=== PATIENT | male | born 2005 | race African-American/Black ===

== ENCOUNTER 2024-07-19 18:14 | Inpatient (IN) | payer SELFPAY ==
[2024-07-19] VITALS (10 sets, daily range): BP systolic 119–136; BP diastolic 85–99; PULSE 64–77; RESP 12–22; TEMP 37.2–37.4; O2SAT 95–100; BMI 23.4
--- NOTE | ~2024-07-19 | XR_ITS ---
XR chest 1V portable Ordering provider: Miguel Vincent MD History: 19 years Male with . cough, flu . Comparison: None. FINDINGS: MEDIASTINUM: The cardiac silhouette is not enlarged. LUNGS: No infiltrates, effusions or pneumothorax. OTHER: No free air under the diaphragm. IMPRESSION: No acute cardiopulmonary pathology. Reviewed, dictated and finalized at location A.
--- NOTE | ~2024-07-19 | NM_ITS ---
EXAMINATION: NM parathyroid w imaging DATE: 07/21/2024 13:24 INDICATION: Hypocalcemia TECHNIQUE: 26.7 mCi Tc99m sestamibi (Cardiolite) was administered by intravenous route. Anterior imag es of the neck were obtained at 20 minutes and 2 hours. COMPARISON: None. FINDINGS/IMPRESSION: There is no focus of persistent activity in the area of the thyroid or mediastinum to suggest parathy roid adenoma. Reviewed, dictated and finalized at location A.
--- NOTE | 2024-07-19 18:17 | ED.GENADULT ---
HPI - General Adult General Chief complaint: Unspecified Stated complaint: body cramps Time Seen by Provider: 07/19/24 18:17 Source: patient Mode of arrival: ambulatory Limitations: no limitations History of Present Illness HPI narrative: 19-year-old male with no significant past medical history presents to the ED with a 4 day history of -- fever, nonproductive cough, body ache, night sweats -- had an episode of generalized stiffness with numbness and tingling all over. -- Shaking of his hands. No loss of consciousness. no incontinence during this episode. Subsequently he did not have any focal neuro deficits. Onset (ago): day(s) ( Four days) Treatments prior to arrival: none Related Data Home Medications ?Medication ?Instructions ?Recorded ?Confirmed ?Last Taken ?Type No Home Medications 07/19/24 Unknown History Allergies Allergy/AdvReac Type Severity Reaction Status Date / Time Fish Containing Products Allergy Severe Anaphylaxis Verified 07/19/24 18:35 Review of Systems Review of Systems: All systems reviewed & are unremarkable except as noted in HPI and below Constitutional: Constitutional: Reports as per HPI, Reports no additional constitutional complaints, Reports chills and Reports fever(s) Eyes: Eyes: Reports as per HPI and Reports no additional eye complaints ENT: Reports system reviewed and no additional complaints, except as documented and Reports as per HPI Cardiovascular: Cardiovascular: Reports as per HPI and Reports no additional cardiovascular complaints Respiratory: Respiratory: Reports as per HPI and Reports no additional respiratory complaints Gastrointestinal: Gastrointestinal: Reports as per HPI, Reports no additional gastrointestinal complaints, Reports abdominal pain and Reports nausea Genitourinary: Genitourinary: Reports no additional male genitourinary complaints and Reports as per HPI Musculoskeletal: Musculoskeletal: Reports no additional musculoskeletal complaints, Reports as per HPI and Reports myalgias Comments: generalized cramping Integumentary/Breasts: Skin/Breast: Reports system reviewed and no additional complaints, except as docu and Reports as per HPI Neurologic: Reports system reviewed and no additional complaints, except as documented and Reports as per HPI Comments: shaking of both hands without any loss of consciousness. Psychiatric: Psychiatric: Reports no additional psychiatric complaints and Reports as per HPI Endocrine: Endocrine: Reports no additional endocrine complaints and Reports as per HPI Hematologic/Lymphatic: Hematologic/Lymphatic: Reports no additional hematologic/lymphatic complaints and Reports as per HPI Allergic/Immunologic: Allergic/Immunologic: Reports no additional allergic/immunologic complaints and Reports as per HPI Exam Const: General: no acute distress Nutritional Appearance: well nourished Orientation/consciousness: patient oriented x3 Limitations: no limitations HENMT: Head: normal to inspection Ears: external ears normal Face/Nose/Sinus: Normal external nose present Face and sinus: normal facial exam Mouth: Yes Normal oral and palatal mucosa present Throat: posterior oropharynx normal Eyes: Conjunctivae: conjunctivae normal Pupils: Equal, round and reactive pupils present EOM: EOMs intact bilaterally Direct Ophthalmoscopy: no photophobia Neck: Neck: normal visual inspection, no lymphadenopathy and no meningeal signs Chest: Chest palpation & inspection: normal inspection of the chest Resp: Effort & Inspection: normal respiratory effort Auscultation: clear to auscultation bilaterally Cardio: Rate: regular rate Rhythm: regular rhythm GI: GI Palp: Yes Soft to palpation Other: No tenderness/rigidity /rebound : General: Yes no CVA tenderness Back/Spine/Pelvis: Back: no CVA tenderness Skin: General skin exam: normal color Rashes: no rashes Wounds: no wounds Neuro: General: patient oriented x3, moves all extremities, no meningeal signs, no focal motor deficits and CN's II-XI intact bilaterally Cranial nerves: Yes Nystagmus not present Gait exam (Neuro): Normal gait present Extrem: General: normal to inspection and no clubbing, cyanosis or edema Psych: Mental Status: mental status grossly normal Affect: normal affect Attitude: cooperative Course Course Emergency Course: upper respiratory tract infection-- influenza a generalized shaking of hands-- hypocalcemia-- patient received 3 g of calcium gluconate, calcitriol 1 mg tablet. No prior episodes of shaking/ cramps hyponatremia /hypokalemia-- patient has been drinking a lot of IV fluids after he became ill. will admit the patient for observation in view of the questionable shaking, arrhythmias, hypotension. will give the patient in telemetry. awaiting the results of a ionized calcium, vitamin-D, parathyroid levels Vital Signs Vital signs: Vital Signs Temperature 37.2 C 07/19/24 20:15 Pulse Rate 74 07/19/24 20:15 Respiratory Rate 18 07/19/24 20:15 Blood Pressure 122/86 07/19/24 20:15 Pulse Oximetry 100 07/19/24 20:15 Oxygen Delivery Room Air 07/19/24 20:15 Temperature 37.3 C 07/19/24 22:41 Pulse Rate 77 07/19/24 22:15 Respiratory Rate 22 H 07/19/24 22:15 Blood Pressure 129/92 H 07/19/24 21:30 Pulse Oximetry 96 07/19/24 22:15 Oxygen Delivery Room Air 07/19/24 20:15 Medical Decision Making MDM Narrative Medical decision making narrative: electrolyte imbalance-- hypokalemia, hyponatremia, hypocalcemia influenza a Differential Diagnosis Differential Diagnosis: vitamin-D deficiency, hypoparathyroid is Medical Records Medical records reviewed: Yes I reviewed the external patient's medical records. Vital Signs Vital Signs: Vital Signs Temperature 37.2 C 07/19/24 20:15 Pulse Rate 74 07/19/24 20:15 Respiratory Rate 18 07/19/24 20:15 Blood Pressure 122/86 07/19/24 20:15 Pulse Oximetry 100 07/19/24 20:15 Oxygen Delivery Room Air 07/19/24 20:15 Temperature 37.3 C 07/19/24 22:41 Pulse Rate 77 07/19/24 22:15 Respiratory Rate 22 H 07/19/24 22:15 Blood Pressure 129/92 H 07/19/24 21:30 Pulse Oximetry 96 07/19/24 22:15 Oxygen Delivery Room Air 07/19/24 20:15 Lab Data 07/19/24 18:40 07/19/24 18:40 Labs: Lab Results 07/19/24 07/19/24 07/19/24 Range/Units 18:40 20:07 20:17 WBC 4.9 (4.8-10.8) K/mm3 RBC 5.26 (4.70-6.10) M/mm3 Hgb 16.0 (14.0-18.0) g/dL Hct 47.4 (40.0-54.0) % MCV 90.1 (78.0-102.0) fL MCH 30.4 (27.0-31.0) pg MCHC 33.8 (32-36) g/dL RDW 12.5 (11.6-14.4) % Plt Count 191 (150-420) K/mm3 MPV 9.0 (8.7-11.0) fl Immature Gran % (Auto) 0.2 H (0.0-0.0) % Neut % (Auto) 45.7 L (50.0-70.0) % Lymph % (Auto) 42.4 H (18.0-42.0) % [place] % (Auto) 10.5 (2.0-11.0) % Eos % (Auto) 0.2 L (1.0-6.0) % Baso % (Auto) 1.0 (0.0-1.0) % Lymph # (Auto) 2.09 (1.10-4.50) K/mm3 [place] # (Auto) 0.52 (0.10-0.90) K/mm3 Eos # (Auto) 0.01 L (0.02-0.50) K/mm3 Baso # (Auto) 0.05 (0.00-0.10) K/mm3 Abs Immat Gran (auto) 0.01 H (0.00-0.00) K/mm3 Absolute Neuts (auto) 2.25 (1.70-7.20) K/mm3 Absolute Nucleated RBC 0.00 (0.00-0.00) K/mm3 Nucleated RBC % 0.0 (0-0.0) % Sodium 131 L (137-145) mmol/L Potassium 3.2 L (3.4-5.0) mmol/L Chloride 93 L (98-107) mmol/L Carbon Dioxide 26 (22-30) mmol/L Anion Gap 12 (4-12) mmol/L BUN 10 (9-20) mg/dL Creatinine 1.11 (0.7-1.3) mg/dL Estim Creat Clear Calc Not Reportable Estimated GFR > 60 (59 - ) Glucose 102 (65-110) mg/dL Calculated Osmolality 271 L (285-295) mOsm/kg Lactic Acid 1.2 (0.7-2.0) mmol/L Calcium 5.6 L* (8.4-10.2) mg/dL Ionized Calcium Dante Pending Phosphorus 5.6 H (2.5-4.5) mg/dL Magnesium 1.6 (1.6-2.3) mg/dL Total Bilirubin 0.7 (0.2-1.3) mg/dL AST 49 (17-59) U/L ALT 22 (6-50) U/L Alkaline Phosphatase 86 (38-126) U/L Total Protein 8.0 (6.3-8.2) g/dL Albumin 4.4 (3.5-5.1) g/dL Lipase 86 (23-300) U/L Vitamin D 25-Hydroxy Pending PTH Intact Pending Influenza A (RT-PCR) Negative (Negative) Influenza B (RT-PCR) Positive A (Negative) RSV (RT-PCR) Negative (Negative) SARS-CoV-2 RNA (RT-PCR) Negative (Negative) ECG Data EKG #1: ECG completion date: 07/19/24 ECG completion time: 21:02 Interpretation: normal sinus rhythm normal axis. ST elevation. QTcB noted to be 415. no heart blocks noted. Discharge Plan Discharge Clinical Impression: Hypocalcemia, Influenza A, Electrolyte imbalance Patient Disposition: Acute Care [facility] Condition: Stable Patient Language: Palestinian Prescriptions: No Action No Home Medications Follow-up/Referrals: UNKNOWN,DOCTOR [Non-Staff] - Time of Disposition: 23:01
[2024-07-19 18:45] LABS: Basophils Absolute Auto 0.05 K/mm3 (0.00-0.10); Eosinophils Absolute Auto 0.01 K/mm3 (0.02-0.50); Eosinophils Percent Auto 0.2 % (1.0-6.0); Hematocrit 47.4 % (40.0-54.0); Immature Granulocyte Absolute 0.01 K/mm3 (0.00-0.00); Immature Granulocyte Percent A 0.2 % (0.0-0.0); Lymphocytes Absolute Auto 2.09 K/mm3 (1.10-4.50); Lymphocytes Percent Auto 42.4 % (18.0-42.0); Mean Corpuscular HGB Conc 33.8 g/dL (32-36); Mean Corpuscular Hemoglobin 30.4 pg (27.0-31.0); Mean Corpuscular Volume 90.1 fL (78.0-102.0); Monocytes Absolute Auto 0.52 K/mm3 (0.10-0.90); Monocytes Percent Auto 10.5 % (2.0-11.0); Neutrophils Absolute Auto 2.25 K/mm3 (1.70-7.20); Neutrophils Percent Auto 45.7 % (50.0-70.0); Platelet Count Result 191 K/mm3 (150-420); Red Blood Count 5.26 M/mm3 (4.70-6.10); Red Cell Distribution Width 12.5 % (11.6-14.4); White Blood Count 4.9 K/mm3 (4.8-10.8)
--- NOTE | 2024-07-19 19:19 | PC.NURSE ---
patient report received from BROWN Dietrich for continuation of care on second shift supervisor. ERP Dr. Vincent at patient bedside for patient update and plan of care at this time.
[2024-07-19 19:23] LABS: Influenza A QL RT-PCR Negative (Negative); Influenza B QL RT-PCR Positive (Negative); RSV RNA, RT-PCR Negative (Negative); SARS-CoV-2 RNA PCR Negative (Negative)
[2024-07-19 19:37] LABS: Lactic Acid Reflex 1.2 mmol/L (0.7-2.0)
[2024-07-19 19:48] LABS: Alanine Aminotransferase 22 U/L (6-50); Albumin Level 4.4 g/dL (3.5-5.1); Alkaline Phosphatase 86 U/L (38-126); Anion Gap 12 mmol/L (4-12); Aspartate Amino Transferase 49 U/L (17-59); Bilirubin,Total 0.7 mg/dL (0.2-1.3); Blood Urea Nitrogen 10 mg/dL (9-20); Calcium 5.6 mg/dL (8.4-10.2); Carbon Dioxide 26 mmol/L (22-30); Chloride 93 mmol/L (98-107); Estimated Glomerular Filt Rate > 60; Glucose 102 mg/dL (65-110); Lipase 86 U/L (23-300); Osmolality Calculated 271 mOsm/kg (285-295); Potassium 3.2 mmol/L (3.4-5.0); Sodium 131 mmol/L (137-145)
--- NOTE | 2024-07-19 19:56 | PC.NURSE ---
Dr. Vincent at patient bedside at this time providing update and plan of care.
[2024-07-19] MEDS: CALCIUM GLUCONATE 1,000 MG/10 ML VIAL 1000 MG IV PUSH ×3 (20:14→22:34)
[2024-07-19] MEDS: LACTATED RINGERS 1,000 ML 999 ML IV CONT (20:14)
--- NOTE | 2024-07-19 20:21 | PC.NURSE ---
patient medicated per order, see MAR. given warm blanket and VS updated. patient and visitor given drinks per request and ERP ok. lights dimmed for comfort. call light within reach, stretcher adjusted per request.
[2024-07-19 20:31] LABS: Magnesium 1.6 mg/dL (1.6-2.3); Phosphorus 5.6 mg/dL (2.5-4.5)
--- NOTE | 2024-07-19 20:56 | ECG_ITS ---
Test Date: 2024-07-19 21:02:36 Measurements Intervals [place] Rate: 77 P: 70 NH: 172 QRS: 83 QRSD: 89 T: 54 QT: 365 QTc: 415 Interpretive Statements SINUS RHYTHM BASELINE ARTIFACT- I, II, III, AVR, AVL NORMAL ECG No previous ECG available for comparison Electronically Signed On 07-19-2024 21:53:10 CDT by Wale Hair D.O.
[2024-07-19] MEDS: calcitrioL 0.25 MCG CAPSULE 1 MCG PO (21:33)
--- NOTE | 2024-07-19 21:35 | PC.NURSE ---
patient medicated per order, see MAR. patient resting on stretcher, given another warm blanket. visitor remains at bedside. ivf infused.
--- NOTE | 2024-07-19 22:41 | PC.NURSE ---
Dr. Vincent at patient bedside at this time speaking with patient regarding results and plan of care.
--- NOTE | 2024-07-19 22:45 | PC.NURSE ---
lead maintenance technician at bedside. patient changed into gown and belongings list collected.
--- NOTE | 2024-07-19 23:46 | ADMGEN ---
This patient, Abdiel Simons, was admitted to 2nd Floor Room 209-1. Patient/family oriented to hospital policies and general routines including ID bracelet, bed and alarms, visiting hours, pain management, procedures, bathroom and other care routines, personal items, smoking policy, room service/diet, and visiting hours. Information on how to activate the Rapid Response Team has been discussed. Patient/Family are encouraged to report perceived risks to care and to ask questions if they do not understand what they are told or what they should do.
[2024-07-20] VITALS: PULSE 76
[2024-07-20 04:00] VITALS: BP 141/84; PULSE 84; RESP 18; TEMP 37.2; O2SAT 100
[2024-07-20 07:51] LABS: Anion Gap 10 mmol/L (4-12); Blood Urea Nitrogen 8 mg/dL (9-20); Calcium 5.6 mg/dL (8.4-10.2); Carbon Dioxide 24 mmol/L (22-30); Chloride 97 mmol/L (98-107); Estimated CRCL calculation 103 ml/min; Estimated Glomerular Filt Rate > 60; Glucose 96 mg/dL (65-110); Magnesium 1.6 mg/dL (1.6-2.3); Osmolality Calculated 270 mOsm/kg (285-295); Sodium 131 mmol/L (137-145)
--- NOTE | 2024-07-20 07:54 | PC.NURSE ---
[facility] called critical lab. Calcium 5.6. Called and spoke with ANDROID IOS DEVELOPER, made aware of critical lab. No orders given at this time.
[2024-07-20 07:58] LABS: Creatine Kinase 1012 U/L (55-170)
[2024-07-20 08:00] VITALS: BP 100/58; PULSE 74; PULSE 76; RESP 18; TEMP 37.7; O2SAT 99
--- NOTE | 2024-07-20 08:36 | P.HP_ITS ---
H&P: HPI History of Present Illness Date/Time: 07/20/24 08:36 Chief Complaint: Body cramps Narrative: This is a 19-year-old male with no significant past medical history who presented to the emergency room with complaints of generalized stiffness, numbness and tingling all over, fever, nonproductive cough, body aches, night sweats x4 days. Patient reports fever, chills, body ache today , general malaise. He denies any nausea, vomiting, diarrhea, abdominal pain, chest pain. he denies any family history of thyroid or parathyroid disorders. Workup in the hospital included a chest x-ray which was negative for any acute cardiopulmonary disease. Initial labs showed a normal white blood cell count of 4.9, sodium 131, chloride 93, potassium 3.2, calcium critically low at 5.6, phosphorus 5.6, total CK 1012. Respiratory panel was positive for influenza B. EKG showed sinus rhythm with a rate of 77, QTC 415. Patient was given 1 L of LR, 3000 mg IV push calcium gluconate while in the ED. repeat calcium still at 5.6, magnesium 1.6, potassium 3.0, sodium 131, chloride 97. Review of Systems Review of Systems: All systems reviewed & are unremarkable except as noted in HPI and below PMFSH Family History Family History Other Unknown family medical history Social History Social History Smoking status: Never smoker Alcohol intake: never Substance use: current Substance use type: marijuana Other substance usage details: took on hit today Do You Feel Safe in your Home?: Yes Lack of Transportation: No Lack of Food: Never True Current Housing: I Have Housing Concerned About Future Housing: No Difficulty Paying Gas/Electric Bills: No Difficulty Paying for Meds: No Currently Unemployed: No Education: High School Diploma/GED Difficulty w/ Childcare or Family Care: No Spiritual care concerns: No Meds Home Medications and Allergies Home Medications ?Medication ?Instructions ?Recorded ?Confirmed ?Type hydrocodone 5 mg-acetaminophen 325 1 tablet PO Q6H PRN pain 07/19/24 07/20/24 History mg tablet Allergies Allergy/AdvReac Type Severity Reaction Status Date / Time Fish Containing Products Allergy Severe Anaphylaxis Verified 07/19/24 18:35 Vital Signs Vital Signs - 24 hr 07/19/24 20:15 07/19/24 21:15 07/19/24 21:16 Temperature 99.0 F Pulse Rate 74 Respiratory Rate 18 Blood Pressure 122/86 119/99 H Pulse Oximetry 100 95 100 Oxygen Delivery Room Air 07/19/24 21:30 07/19/24 21:31 07/19/24 21:45 Temperature Pulse Rate 72 67 64 Respiratory Rate 19 12 19 Blood Pressure 129/92 H Pulse Oximetry 97 100 Oxygen Delivery 07/19/24 22:00 07/19/24 22:15 07/19/24 22:41 Temperature 99.1 F Pulse Rate 73 77 Respiratory Rate 20 22 H Blood Pressure Pulse Oximetry 100 96 Oxygen Delivery 07/19/24 23:40 07/20/24 00:00 07/20/24 04:00 Temperature 99.4 F 99.0 F Pulse Rate 77 76 84 Respiratory Rate 18 18 Blood Pressure 136/85 141/84 H Pulse Oximetry 98 100 Oxygen Delivery Room Air Room Air 07/20/24 08:00 07/20/24 08:00 Temperature 100 F H Pulse Rate 74 76 Respiratory Rate 18 Blood Pressure 100/58 L Pulse Oximetry 99 Oxygen Delivery Room Air Exam Narrative: General: In no acute distress, well nourished Head: atraumatic, no encephalopathy Eyes: PERRLA, sclera clear, reports blurred vision ENT: moist mucous membranes, nasal passages clear Neck: supple, no JVD, no adenopathy, trachea midline Cardiac: Normal S1 and S2. RRR, No murmur, gallops or friction rubs, peripheral pulses intact. Respiratory: Lungs clear to auscultation, no adventitious lung sounds, currently on room air Gastrointestinal: soft, non-distended, non-tender, normoactive bowel sounds. : voiding without difficulty. Extremities: moves all extremities well, no edema Skin: clean, dry, intact. No wounds or lesions. Neuro: Alert and oriented x4, cranial nerves intact, no neuro deficits. Psych: normal mood, normal affect, interactive H&P: Results Labs Labs: Short CBC 07/19/24 Range/Units 18:40 WBC 4.9 (4.8-10.8) K/mm3 Hgb 16.0 (14.0-18.0) g/dL Hct 47.4 (40.0-54.0) % Plt Count 191 (150-420) K/mm3 BMP 07/19/24 07/20/24 18:40 05:20 Sodium 131 L 131 L Potassium 3.2 L 3.0 L Chloride 93 L 97 L Carbon Dioxide 26 24 BUN 10 8 L Creatinine 1.11 0.87 Glucose 102 96 Calcium 5.6 L* 5.6 L* Cardiac Enzymes 07/20/24 Range/Units 05:19 Total Creatine Kinase 1012 H (55-170) U/L Liver Function 07/19/24 Range/Units 18:40 Total Bilirubin 0.7 (0.2-1.3) mg/dL AST 49 (17-59) U/L ALT 22 (6-50) U/L Alkaline Phosphatase 86 (38-126) U/L Albumin 4.4 (3.5-5.1) g/dL Imaging Chest x-ray: Radiologist's impression: XR chest 1V portable Ordering provider: Miguel Vincent MD History: 19 years Male with . cough, flu . Comparison: None. FINDINGS: MEDIASTINUM: The cardiac silhouette is not enlarged. LUNGS: No infiltrates, effusions or pneumothorax. OTHER: No free air under the diaphragm. IMPRESSION: No acute cardiopulmonary pathology. Reviewed, dictated and finalized at location A. Assessment and Plan Assessment and plan (1) Hypocalcemia: Code(s): E83.51 - Hypocalcemia Status: Acute Assessment and Plan: possibly secondary to influenza B with dehydration versus rhabdomyolysis versus hypoparathyroidism * calcium level 5.6 * vitamin-D ordered * we will replace his magnesium 1st and give him vitamin-D before replacing his calcium per up-to-date recommendations * ionized calcium and vitamin-D pending * parathyroid hormone pending * continue cardiac monitoring * consider transfer to tertiary care for endocrinology if his hypocalcemia persists * NM parathyroid with imaging ordered (2) Influenza B: Code(s): J10.1 - Influenza due to other identified influenza virus with other respiratory manifestations Status: Acute Assessment and Plan: * respiratory panel positive for influenza B * chest x-ray was negative for any cardiopulmonary disease * supportive care (3) Rhabdomyolysis: Code(s): M62.82 - Rhabdomyolysis Status: Acute Assessment and Plan: * total CK 1012, mild * monitor kidney function * patient was given 1 L of LR while in the ED * continue IV fluids * continue to trend (4) Electrolyte imbalance: Code(s): E87.8 - Other disorders of electrolyte and fluid balance, not elsewhere classified Status: Acute Assessment and Plan: * potassium 3.0 * normal saline with 40 mEq of KCL ordered at 100 mL/hour * will give 40 mEq of potassium oral * magnesium 1.6 * will give 2 g of magnesium now * continue to trend * replace potassium if less than 4.0, magnesium if less than 2.0 Quality VTE Prophylaxis VTE prophylaxis: pharmacologic ordered Hospitalist MIPS Advance Care Plan I have confirmed that the patient's Advanced Care Plan is present, code status is documented, or surrogate decision maker is listed in patient medical record.: Yes Medication Reconciliation I have utilized all available resources to obtain, update and review the patients current medications (includes all prescriptions, OTC, herbals, cannabis, and nutritional supplements).: Yes
[2024-07-20] MEDS: POTASSIUM CHLORIDE 20 MEQ PACKET (FOR LIQUID) 40 MEQ PO (09:16)
[2024-07-20] MEDS: CHOLECALCIFEROL 1,000 UNITS TABLET 1000 UNITS PO (09:16)
[2024-07-20] MEDS: MAGNESIUM SULF 2 GM/WATER 50ML 2 GM/50 ML BAG IVPB (09:17)
[2024-07-20] MEDS: KCL 40 MEQ/0.9% SOD CHL 1,000 ML 100 ML IV CONT ×2 (09:17→18:42)
[2024-07-20] MEDS: HEPARIN SODIUM 5,000 UNITS/ML VIAL 5000 UNITS SUB-Q ×2 (09:18→20:43)
[2024-07-20] MEDS: OSELTAMIVIR PHOSPHATE 75 MG CAPSULE PO ×2 (09:38→20:43)
[2024-07-20] MEDS: CALCIUM GLUC 2,000 MG/NS 100ML 2,000 MG/100 ML BAG 100 MG IVPB (10:53)
[2024-07-20 12:00] VITALS: BP 108/72; PULSE 74; RESP 18; TEMP 37.3; O2SAT 97
[2024-07-20 14:12] LABS: Alanine Aminotransferase 20 U/L (6-50); Alkaline Phosphatase 82 U/L (38-126); Aspartate Amino Transferase 51 U/L (17-59); Bilirubin Direct < 0.1 mg/dL (0-0.3); Bilirubin,Total 0.6 mg/dL (0.2-1.3)
[2024-07-20 14:20] LABS: Albumin Level 3.8 g/dL (3.5-5.1)
[2024-07-20 14:42] LABS: Alanine Aminotransferase 22 U/L (6-50); Alkaline Phosphatase 78 U/L (38-126); Anion Gap 8 mmol/L (4-12); Aspartate Amino Transferase 44 U/L (17-59); Bilirubin,Total 0.6 mg/dL (0.2-1.3); Blood Urea Nitrogen 8 mg/dL (9-20); Calcium 6.2 mg/dL (8.4-10.2); Carbon Dioxide 26 mmol/L (22-30); Chloride 98 mmol/L (98-107); Estimated CRCL calculation 104 ml/min; Estimated Glomerular Filt Rate > 60; Glucose 105 mg/dL (65-110); Osmolality Calculated 272 mOsm/kg (285-295); Sodium 132 mmol/L (137-145)
[2024-07-20 15:27] VITALS: BP 110/72; PULSE 78; PULSE 80; RESP 18; TEMP 37.2; O2SAT 97
[2024-07-20] MEDS: ACETAMINOPHEN 325 MG TABLET 650 MG PO (18:46)
[2024-07-20 20:00] VITALS: BP 122/77; PULSE 75; PULSE 98; RESP 16; TEMP 36.8; O2SAT 95
[2024-07-21] VITALS: BP 122/77; PULSE 76; PULSE 78; RESP 16; TEMP 36.8; O2SAT 98
[2024-07-21 02:00] LABS: Alanine Aminotransferase 27 U/L (16-63); Albumin Level 3.5 g/dL (3.4-5.0); Alkaline Phosphatase 97 U/L (46-116); Anion Gap 8 mmol/L (4-12); Aspartate Amino Transferase 31 U/L (15-37); Bilirubin,Total 0.5 mg/dL (0.00-1.00); Blood Urea Nitrogen 6 mg/dL (7-18); Calcium 6.2 mg/dL (8.5-10.1); Carbon Dioxide 30 mmol/L (21-32); Chloride 99 mmol/L (98-108); Estimated CRCL calculation 83 ml/min; Estimated Glomerular Filt Rate > 60; Glucose 99 mg/dL (70-99); Osmolality Calculated 281 mOsm/kg (285-295); Sodium 137 mmol/L (136-145); Total Protein 7.4 g/dL (6.4-8.2)
[2024-07-21 04:00] VITALS: BP 130/70; PULSE 78; RESP 16; TEMP 36.6; O2SAT 98
[2024-07-21 04:37] LABS: Hematocrit 47.7 % (40.0-54.0); Hemoglobin 15.8 g/dL (14.0-18.0); Mean Corpuscular HGB Conc 33.1 g/dL (32-36); Mean Corpuscular Hemoglobin 29.8 pg (27.0-31.0); Mean Corpuscular Volume 89.8 fL (78.0-102.0); Mean Platelet Volume 9.2 fl (8.7-11.0); Platelet Count Result 216 K/mm3 (150-420); Red Blood Count 5.31 M/mm3 (4.70-6.10); Red Cell Distribution Width 12.5 % (11.6-14.4); White Blood Count 4.2 K/mm3 (4.8-10.8)
[2024-07-21] MEDS: KCL 40 MEQ/0.9% SOD CHL 1,000 ML 100 ML IV CONT ×2 (04:50→15:28)
[2024-07-21 04:55] LABS: Alanine Aminotransferase 16 U/L (16-63); Albumin Level 3.3 g/dL (3.4-5.0); Alkaline Phosphatase 100 U/L (46-116); Anion Gap 10 mmol/L (4-12); Aspartate Amino Transferase 25 U/L (15-37); Bilirubin,Total 0.6 mg/dL (0.00-1.00); Blood Urea Nitrogen 4 mg/dL (7-18); Calcium 6.1 mg/dL (8.5-10.1); Carbon Dioxide 24 mmol/L (21-32); Chloride 99 mmol/L (98-108); Creatine Kinase 949 U/L (39-308); Estimated CRCL calculation 103 ml/min; Estimated Glomerular Filt Rate > 60; Glucose 92 mg/dL (70-99); Magnesium 1.5 mg/dL (1.8-2.4); Osmolality Calculated 272 mOsm/kg (285-295); Potassium 3.9 mmol/L (3.5-5.1); Sodium 133 mmol/L (136-145)
[2024-07-21 05:42] LABS: Band Neutrophils Percent 0 % (0-6); Basophils Percent Manual 0 % (0-1); Eosinophils Absolute Manual 0.08 K/mm3 (0.02-0.50); Eosinophils Percent Manual 2 % (1-6); Lymphocytes Absolute Manual 2.35 K/mm3 (1.1-4.5); Lymphocytes Percent Manual 56 % (18-44); Monocytes Absolute Manual 0.37 K/mm3 (0.1-0.90); Monocytes Percent Manual 9 % (3-9); Neutrophils Absolute Manual 1.38 K/mm3 (1.3-6.7); Neutrophils Percent Manual 33 % (46-73); Platelet Estimate Adequate (Adequate)
[2024-07-21 10:10] LABS: Sodium 136 mmol/L (136-145)
[2024-07-21 10:11] LABS: Potassium 4.1 mmol/L (3.5-5.1)
[2024-07-21 10:15] LABS: Anion Gap 10 mmol/L (4-12); Carbon Dioxide 26 mmol/L (21-32); Chloride 100 mmol/L (98-108); Estimated Glomerular Filt Rate > 60
[2024-07-21 10:30] LABS: Blood Urea Nitrogen 6 mg/dL (7-18)
[2024-07-21 10:34] LABS: Glucose 90 mg/dL (70-99); Osmolality Calculated 279 mOsm/kg (285-295)
[2024-07-21 10:37] LABS: Bilirubin,Total 0.5 mg/dL (0.00-1.00)
[2024-07-21 10:38] LABS: Alanine Aminotransferase 30 U/L (16-63); Aspartate Amino Transferase 30 U/L (15-37)
[2024-07-21 10:40] LABS: Albumin Level 3.4 g/dL (3.4-5.0); Alkaline Phosphatase 98 U/L (46-116); Total Protein 7.4 g/dL (6.4-8.2)
[2024-07-21 10:48] LABS: Estimated CRCL calculation 88 ml/min
--- NOTE | 2024-07-21 11:26 | PC.NURSE ---
Downtime today from [id number]. New orders written for Magnesium 3 gram x 1 IVPB. Calcium Gluconate 2000mg IVPB x1, written by Beatriz Chauhan NP during downtime.
--- NOTE | 2024-07-21 11:31 | P.PNIM_ITS ---
Progress Note: A&P Assessment and Plan (1) Hypocalcemia: Code(s): E83.51 - Hypocalcemia Status: Acute Assessment and Plan: possibly secondary to influenza B with dehydration versus rhabdomyolysis versus hypoparathyroidism * calcium level 5.6 * vitamin-D ordered * we will replace his magnesium 1st and give him vitamin-D before replacing his calcium per up-to-date recommendations * ionized calcium and vitamin-D pending * parathyroid hormone pending * continue cardiac monitoring * consider transfer to tertiary care for endocrinology if his hypocalcemia persists * NM parathyroid with imaging ordered 5/2 * Calcium level today 6.0 * 2 g calcium gluconate ordered * PTH, ionized calcium, vitamin-D still pending * Continue Vitamin D * Plan for NM parathyroid imaging (2) Influenza B: Code(s): J10.1 - Influenza due to other identified influenza virus with other respiratory manifestations Status: Acute Assessment and Plan: * respiratory panel positive for influenza B * chest x-ray was negative for any cardiopulmonary disease * supportive care (3) Rhabdomyolysis: Code(s): M62.82 - Rhabdomyolysis Status: Acute Assessment and Plan: * total CK 1012, mild * monitor kidney function * patient was given 1 L of LR while in the ED * continue IV fluids * continue to trend 5/2 * Total CK trending downward * Continue IV fluids (4) Electrolyte imbalance: Code(s): E87.8 - Other disorders of electrolyte and fluid balance, not elsewhere classified Status: Acute Assessment and Plan: * potassium 3.0 * normal saline with 40 mEq of KCL ordered at 100 mL/hour * will give 40 mEq of potassium oral * magnesium 1.6 * will give 2 g of magnesium now * continue to trend * replace potassium if less than 4.0, magnesium if less than 2.0 5/2 * Magnesium 1.5, calcium 6.0, potassium today 4.1 * Continue normal saline with 40 of K at 100 mL/hour * Will give 4 g of Mag x1 * 2 g of calcium gluconate to follow Time Spent With Patient Time with patient: 25 - 35 minutes Subjective Date/time seen: 07/21/24 11:31 Interval history: Interval History: This is a 19-year-old male with no significant past medical history who presented to the emergency room with complaints of generalized stiffness, numbness and tingling all over, fever, nonproductive cough, body aches, night sweats x4 days. Patient reports fever, chills, body ache today , general malaise. He denies any nausea, vomiting, diarrhea, abdominal pain, chest pain. he denies any family history of thyroid or parathyroid disorders. Workup in the hospital included a chest x-ray which was negative for any acute cardiopulmonary disease. Initial labs showed a normal white blood cell count of 4.9, sodium 131, chloride 93, potassium 3.2, calcium critically low at 5.6, phosphorus 5.6, total CK 1012. Respiratory panel was positive for influenza B. EKG showed sinus rhythm with a rate of 77, QTC 415. Patient was given 1 L of LR, 3000 mg IV push calcium gluconate while in the ED. repeat calcium still at 5.6, magnesium 1.6, potassium 3.0, sodium 131, chloride 97. Subjective: Patient denies any new complaints today. Labs reviewed. Review of Systems Review of Systems: All systems reviewed & are unremarkable except as noted in HPI and below Exam Narrative: General: In no acute distress, well nourished Cardiac: Normal S1 and S2. RRR, No murmur, gallops or friction rubs, peripheral pulses intact. Respiratory: Lungs clear to auscultation, no adventitious lung sounds, currently on room air Gastrointestinal: soft, non-distended, non-tender, normoactive bowel sounds. : voiding without difficulty. Neuro: Alert and oriented x4 Objective Data Vital Signs Vital Signs: Vital Signs - 24 hr 07/20/24 12:00 07/20/24 12:00 07/20/24 15:27 Temperature 99.2 F Pulse Rate 74 74 78 Respiratory Rate 18 Blood Pressure 108/72 Pulse Oximetry 97 Oxygen Delivery Room Air 07/20/24 15:27 07/20/24 20:00 07/20/24 20:00 Temperature 98.9 F 98.2 F Pulse Rate 80 98 75 Respiratory Rate 18 16 Blood Pressure 110/72 122/77 Pulse Oximetry 97 95 Oxygen Delivery Room Air Room Air 07/21/24 00:00 07/21/24 00:00 07/21/24 04:00 Temperature 98.2 F Pulse Rate 78 76 78 Respiratory Rate 16 Blood Pressure 122/77 Pulse Oximetry 98 Oxygen Delivery Room Air 07/21/24 04:00 Temperature 97.9 F Pulse Rate 78 Respiratory Rate 16 Blood Pressure 130/70 Pulse Oximetry 98 Oxygen Delivery Room Air Intake/Output Intake/Output: Intake & Output 07/18/24 07/19/24 07/20/24 07/21/24 23:59 23:59 23:59 23:59 Intake Total 1000 3981.7 2300 Output Total 800 1000 1000 Balance 200 2981.7 1300 Meds/Results Medications: Active Medications Generic Name Dose Route Start Last Admin Trade Name Freq PRN Reason Stop Dose Admin Acetaminophen 650 mg 07/19/24 23:04 07/20/24 18:46 Acetaminophen 325 Mg Tablet PO 650 mg Q4H PRN Administration Mild Pain (1-3) or Fever Heparin Sodium (Porcine) 5,000 units 07/20/24 09:00 07/20/24 20:43 Heparin Sodium 5,000 Units/Ml Vial SUB-Q 5,000 units Q12HR AHMET Administration Potassium Chloride/Sodium Chloride 1,000 mls @ 100 mls/hr 07/20/24 08:45 07/21/24 04:50 Kcl 40 Meq/Ns IV CONT 100 mls/hr .Q10H AHMET Administration Ondansetron HCl 4 mg 07/19/24 23:04 Ondansetron Inj 4 Mg/2 Ml Vial IV PUSH Q6H PRN Nausea And Vomiting Oseltamivir Phosphate 75 mg 07/20/24 09:00 07/20/24 20:43 Oseltamivir Phosphate 75 Mg Capsule PO 07/25/24 08:59 75 mg Q12HR AHMET Administration Vitamin D 1,000 units 07/20/24 09:00 07/20/24 09:16 Cholecalciferol 1,000 Units Tablet PO 1,000 units DAILY AHMET Administration Radiology Results: ITS Impressions Chest X-Ray 07/19/24 20:07 IMPRESSION: No acute cardiopulmonary pathology. Labs Labs: Laboratory Results - last 24 hr 07/20/24 07/20/24 07/20/24 05:20 13:50 22:30 WBC RBC Hgb Hct MCV MCH MCHC RDW Plt Count MPV Immature Gran % (Auto) Neut % (Auto) Lymph % (Auto) [place] % (Auto) Eos % (Auto) Baso % (Auto) Lymph # (Auto) [place] # (Auto) Eos # (Auto) Baso # (Auto) Abs Immat Gran (auto) Absolute Neuts (auto) Absolute Nucleated RBC Neutrophils % (Manual) Band Neutrophils % Lymphocytes % (Manual) Monocytes % (Manual) Eosinophils % (Manual) Basophils % (Manual) Nucleated RBC % Abs Neuts (Manual) Abs Lymphs (Manual) Abs Monocytes (Manual) Absolute Eos (Manual) Abs Basophils (Manual) Platelet Estimate Schistocytes Sodium 132 L 137 Potassium 4.0 4.0 Chloride 98 99 Carbon Dioxide 26 30 Anion Gap 8 8 BUN 8 L 6 L Creatinine 0.86 1.10 Estim Creat Clear Calc 104 83 Estimated GFR > 60 > 60 Glucose 105 99 Calculated Osmolality 272 L 281 L Calcium 6.2 L 6.2 L Magnesium Total Bilirubin 0.6 0.6 0.5 Direct Bilirubin < 0.1 AST 51 44 31 ALT 20 22 27 Alkaline Phosphatase 82 78 97 Total Creatine Kinase Total Protein 7.0 7.0 7.4 Albumin 3.8 4.0 3.5 07/21/24 07/21/24 04:13 09:10 WBC 4.2 L RBC 5.31 Hgb 15.8 Hct 47.7 MCV 89.8 MCH 29.8 MCHC 33.1 RDW 12.5 Plt Count 216 MPV 9.2 Immature Gran % (Auto) Not Reportable Neut % (Auto) Not Reportable Lymph % (Auto) Not Reportable [place] % (Auto) Not Reportable Eos % (Auto) Not Reportable Baso % (Auto) Not Reportable Lymph # (Auto) Not Reportable [place] # (Auto) Not Reportable Eos # (Auto) Not Reportable Baso # (Auto) Not Reportable Abs Immat Gran (auto) Not Reportable Absolute Neuts (auto) Not Reportable Absolute Nucleated RBC Not Reportable Neutrophils % (Manual) 33 L Band Neutrophils % 0 Lymphocytes % (Manual) 56 H Monocytes % (Manual) 9 Eosinophils % (Manual) 2 Basophils % (Manual) 0 Nucleated RBC % Not Reportable Abs Neuts (Manual) 1.38 Abs Lymphs (Manual) 2.35 Abs Monocytes (Manual) 0.37 Absolute Eos (Manual) 0.08 Abs Basophils (Manual) 0.00 Platelet Estimate Adequate Schistocytes Not Reportable Sodium 133 L 136 Potassium 3.9 4.1 Chloride 99 100 Carbon Dioxide 24 26 Anion Gap 10 10 BUN 4 L 6 L Creatinine 0.87 1.03 Estim Creat Clear Calc 103 88 Estimated GFR > 60 > 60 Glucose 92 90 Calculated Osmolality 272 L 279 L Calcium 6.1 L 6.0 L* Magnesium 1.5 L Total Bilirubin 0.6 0.5 Direct Bilirubin AST 25 30 ALT 16 30 Alkaline Phosphatase 100 98 Total Creatine Kinase 949 H Total Protein 7.0 7.4 Albumin 3.3 L 3.4 Quality VTE Prophylaxis VTE prophylaxis: pharmacologic ordered
[2024-07-21 12:00] VITALS: BP 118/74; PULSE 74; RESP 18; TEMP 36.6; O2SAT 96
--- NOTE | 2024-07-21 12:20 | PC.NURSE ---
7a-12n computer system down and patient charting down on down time paperwork. went done to xray at 10am. back in room @ 11:50. 1st bag of mag done and #2 bag started. sitting in bed. telling nurse he is leaving at 2pm to take girlfriend and mother's call back. he will return later if he feels bad. explained to him about labs not good. that his meds will not infused by that time. he would have to start back over in er somewhere. explained lab values and tests that are being done. vocalizes an understanding. encouraged to fined girlfriend a ride home and he stay.
[2024-07-21] MEDS: CALCIUM GLUC 2,000 MG/NS 100ML 2,000 MG/100 ML BAG 100 MG IVPB ×2 (13:43→21:53)
[2024-07-21 13:58] LABS: Parathyroid Intact 220 pg/mL (16-77)
--- NOTE | 2024-07-21 14:42 | PC.NURSE ---
Patient changed to inpatient status at 1423.
[2024-07-21 14:49] LABS: Ionized Calcium 3.5 mg/dL (4.7-5.5)
[2024-07-21 15:09] LABS: Alanine Aminotransferase 16 U/L (16-63); Albumin Level 3.3 g/dL (3.4-5.0); Alkaline Phosphatase 92 U/L (46-116); Anion Gap 6 mmol/L (4-12); Aspartate Amino Transferase 25 U/L (15-37); Bilirubin,Total 0.4 mg/dL (0.00-1.00); Blood Urea Nitrogen 6 mg/dL (7-18); Calcium 6.9 mg/dL (8.5-10.1); Carbon Dioxide 30 mmol/L (21-32); Chloride 101 mmol/L (98-108); Estimated CRCL calculation 88 ml/min; Estimated Glomerular Filt Rate > 60; Glucose 90 mg/dL (70-99); Osmolality Calculated 281 mOsm/kg (285-295); Potassium 4.5 mmol/L (3.5-5.1); Sodium 137 mmol/L (136-145); Total Protein 7.2 g/dL (6.4-8.2)
[2024-07-21 15:38] VITALS: PULSE 73
[2024-07-21 15:42] VITALS: BP 108/68; PULSE 82; RESP 16; TEMP 37.2; O2SAT 97
--- NOTE | 2024-07-21 16:29 | PC.NURSE ---
[id number] computers were down and downtime paper work filled.
[2024-07-21] MEDS: ACETAMINOPHEN 325 MG TABLET 650 MG PO (19:13)
[2024-07-21 20:00] VITALS: BP 103/60; PULSE 84; RESP 16; TEMP 36.7; O2SAT 97
[2024-07-21 21:16] LABS: Alanine Aminotransferase 16 U/L (16-63); Albumin Level 3.4 g/dL (3.4-5.0); Alkaline Phosphatase 96 U/L (46-116); Anion Gap 6 mmol/L (4-12); Aspartate Amino Transferase 24 U/L (15-37); Bilirubin,Total 0.5 mg/dL (0.00-1.00); Blood Urea Nitrogen 6 mg/dL (7-18); Calcium 6.3 mg/dL (8.5-10.1); Carbon Dioxide 25 mmol/L (21-32); Chloride 100 mmol/L (98-108); Estimated CRCL calculation 97 ml/min; Estimated Glomerular Filt Rate > 60; Glucose 98 mg/dL (70-99); Magnesium 1.9 mg/dL (1.8-2.4); Osmolality Calculated 269 mOsm/kg (285-295); Potassium 4.4 mmol/L (3.5-5.1); Sodium 131 mmol/L (136-145); Total Protein 7.2 g/dL (6.4-8.2)
[2024-07-21 21:33] LABS: Vitamin D 25 Hydroxy 19 ng/mL (30-100)
[2024-07-21] MEDS: HEPARIN SODIUM 5,000 UNITS/ML VIAL 5000 UNITS SUB-Q (21:53)
[2024-07-21] MEDS: OSELTAMIVIR PHOSPHATE 75 MG CAPSULE PO (21:54)
[2024-07-22] VITALS: BP 103/60; PULSE 60; PULSE 85; RESP 16; TEMP 36.2; O2SAT 97
[2024-07-22] MEDS: KCL 40 MEQ/0.9% SOD CHL 1,000 ML 100 ML IV CONT (02:50)
[2024-07-22 04:00] VITALS: BP 108/66; PULSE 59; PULSE 66; RESP 16; TEMP 36.7; O2SAT 98
[2024-07-22 05:36] LABS: Basophils Absolute Auto 0.04 K/mm3 (0.00-0.10); Basophils Percent Auto 0.9 % (0.0-1.0); Eosinophils Absolute Auto 0.23 K/mm3 (0.02-0.50); Eosinophils Percent Auto 5.1 % (1.0-6.0); Hematocrit 51.1 % (40.0-54.0); Hemoglobin 16.4 g/dL (14.0-18.0); Lymphocytes Absolute Auto 2.65 K/mm3 (1.10-4.50); Lymphocytes Percent Auto 58.2 % (18.0-42.0); Mean Corpuscular HGB Conc 32.1 g/dL (32-36); Mean Corpuscular Hemoglobin 30.5 pg (27.0-31.0); Mean Platelet Volume 9.3 fl (8.7-11.0); Monocytes Absolute Auto 0.35 K/mm3 (0.10-0.90); Monocytes Percent Auto 7.7 % (2.0-11.0); Neutrophils Absolute Auto 1.28 K/mm3 (1.70-7.20); Neutrophils Percent Auto 28.1 % (50.0-70.0); Platelet Count Result 176 K/mm3 (150-420); Red Blood Count 5.38 M/mm3 (4.70-6.10); Red Cell Distribution Width 12.7 % (11.6-14.4); White Blood Count 4.6 K/mm3 (4.8-10.8)
[2024-07-22 05:52] LABS: Creatine Kinase 763 U/L (39-308); Magnesium 1.8 mg/dL (1.8-2.4)
[2024-07-22 08:00] VITALS: BP 104/64; PULSE 76; PULSE 85; RESP 15; TEMP 36.8; O2SAT 99
[2024-07-22] MEDS: HEPARIN SODIUM 5,000 UNITS/ML VIAL 5000 UNITS SUB-Q (10:07)
[2024-07-22] MEDS: OSELTAMIVIR PHOSPHATE 75 MG CAPSULE PO (10:07)
[2024-07-22] MEDS: CHOLECALCIFEROL 1,000 UNITS TABLET 1000 UNITS PO (10:07)
[2024-07-22 12:00] VITALS: BP 101/71; PULSE 72; RESP 15; TEMP 36.6; O2SAT 98
[2024-07-22 13:19] LABS: Alanine Aminotransferase 19 U/L (16-63); Albumin Level 3.3 g/dL (3.4-5.0); Alkaline Phosphatase 89 U/L (46-116); Anion Gap 9 mmol/L (4-12); Aspartate Amino Transferase 29 U/L (15-37); Bilirubin,Total 0.4 mg/dL (0.00-1.00); Blood Urea Nitrogen 7 mg/dL (7-18); Carbon Dioxide 22 mmol/L (21-32); Chloride 102 mmol/L (98-108); Estimated CRCL calculation 95 ml/min; Estimated Glomerular Filt Rate > 60; Glucose 83 mg/dL (70-99); Osmolality Calculated 273 mOsm/kg (285-295); Potassium 5.4 mmol/L (3.5-5.1); Sodium 133 mmol/L (136-145); Total Protein 7.1 g/dL (6.4-8.2)
[2024-07-22] MEDS: MAGNESIUM SULF 2 GM/WATER 50ML 2 GM/50 ML BAG IVPB (13:35)
[2024-07-22] MEDS: SODIUM CHLORIDE 0.9% IV 1,000 ML 100 ML IV CONT (13:36)
--- NOTE | 2024-07-22 15:59 | P.DS_ITS ---
DS: Admitting Diagnosis Discharge Date 07/22/24 Admitting Diagnosis Hypocalcemia, influenza B, Rhabdomyolysis, Electrolyte imbalance DS: Discharge Diagnosis Discharge Diagnosis (1) Hypocalcemia: Code(s): E83.51 - Hypocalcemia Status: Acute (2) Influenza B: Code(s): J10.1 - Influenza due to other identified influenza virus with other respiratory manifestations Status: Acute (3) Rhabdomyolysis: Code(s): M62.82 - Rhabdomyolysis Status: Acute (4) Electrolyte imbalance: Code(s): E87.8 - Other disorders of electrolyte and fluid balance, not elsewhere classified Status: Acute DS: Summary Hospital Course Reason for hospitalization: Abnormal labs in setting of influenza B Hospital Course: This is a 19 year old male patient who was admitted to the hospital on 07/20/24 with significant lab abnormalities. He came to ER with cough, vomiting and muscle cramping/aching. Patient states that even before this recent illness his hands would often cramp up on him. Patient was found to have low potassium, low magnesium and critically low calcium as well as elevated creatinine kinase. Patient tested positive for Influenza B. During hospital stay patient received IV replacements of magnesium, continuous IV fluids with potassium and IV calcium. He was also placed on Tamiflu and Vitamin D supplementation. Today labs are improving. Patient is symptom free. I did not see ionized calcium, parathyroid hormone or vitamin D testing in progress so this was ordered and obtained prior to discharge for primary care to follow up with patient in 1-3 weeks. I also wrote prescription for repeat renal function test and magnesium level to be drawn in about 5 days as an outpatient to see if values stay improved or begin to decrease again. Patient agreeable with these discharge plans and he was very pleased to be able to leave the hospital today. He was instructed on mask use, washing hands and decreasing spread of flu. He was urinating, eating and drinking well. Status at Discharge Cognitive/behavioral status at discharge: Awake, alert, oriented and very pleasant Functional status at discharge: independent ambulation Overall status at discharge: patient is back to baseline Time Spent with Patient Time attestation: Total time spent providing and/or coordinating discharge services: 45 minutes Time spent: Greater than 30 minutes Exam Narrative: General: In no acute distress, well nourished Cardiac: Normal S1 and S2. RRR, No murmur, gallops or friction rubs, peripheral pulses intact. Respiratory: Lungs clear to auscultation, no adventitious lung sounds, currently on room air Gastrointestinal: soft, non-distended, non-tender, normoactive bowel sounds. Neuro: Alert and oriented x4 DS: Data Data Completed and Pending Pending studies at discharge: Parathyroid hormone, ionized calcium, vitamin D levels Labs on day of discharge: Labs from last 24 hours 07/22/24 07/22/24 07/21/24 05:28 05:22 20:57 WBC 4.6 L RBC 5.38 Hgb 16.4 Hct 51.1 MCV 95.0 MCH 30.5 MCHC 32.1 RDW 12.7 Plt Count 176 MPV 9.3 Immature Gran % (Auto) 0.0 Neut % (Auto) 28.1 L Lymph % (Auto) 58.2 H [place] % (Auto) 7.7 Eos % (Auto) 5.1 Baso % (Auto) 0.9 Lymph # (Auto) 2.65 [place] # (Auto) 0.35 Eos # (Auto) 0.23 Baso # (Auto) 0.04 Abs Immat Gran (auto) 0.00 Absolute Neuts (auto) 1.28 L Absolute Nucleated RBC 0.00 Nucleated RBC % 0.0 Sodium 133 L 131 L Potassium 5.4 H 4.4 Chloride 102 100 Carbon Dioxide 22 25 Anion Gap 9 6 BUN 7 6 L Creatinine 0.95 0.93 Estim Creat Clear Calc 95 97 Estimated GFR > 60 > 60 Glucose 83 98 Calculated Osmolality 273 L 269 L Calcium 7.0 L 6.3 L Magnesium 1.8 1.9 Total Bilirubin 0.4 0.5 AST 29 24 ALT 19 16 Alkaline Phosphatase 89 96 Total Creatine Kinase 763 H Total Protein 7.1 7.2 Albumin 3.3 L 3.4 Vitamin D 25-Hydroxy 07/19/24 18:40 WBC RBC Hgb Hct MCV MCH MCHC RDW Plt Count MPV Immature Gran % (Auto) Neut % (Auto) Lymph % (Auto) [place] % (Auto) Eos % (Auto) Baso % (Auto) Lymph # (Auto) [place] # (Auto) Eos # (Auto) Baso # (Auto) Abs Immat Gran (auto) Absolute Neuts (auto) Absolute Nucleated RBC Nucleated RBC % Sodium Potassium Chloride Carbon Dioxide Anion Gap BUN Creatinine Estim Creat Clear Calc Estimated GFR Glucose Calculated Osmolality Calcium Magnesium Total Bilirubin AST ALT Alkaline Phosphatase Total Creatine Kinase Total Protein Albumin Vitamin D 25-Hydroxy 19 L Discharge Plan Discharge Attending physician on discharge: Zaria Obrien Consulting providers: Rain Chauhna Discharging Clinician: Nirav Ashton Anticipated Discharge Date/Time: 07/22/24 17:00 Patient Disposition: Home Activity: as tolerated Diet: as tolerated Discharge Instructions: Continue good oral fluid intake (water) Please follow up with Dr. Fontaine regarding your abnormal lab levels. We shimon blood for additional testing that gets sent to another facility to run and will take several days to come back. This information will help guide your future care. Patient Instructions: Rhabdomyolysis (DC), Influenza (DC), Hypocalcemia (DC) Patient Language: Citizen Of [place] Stand Alone Forms: General Discharge Information, Work/School Release IP Follow-up/Referrals: Tae Fontaine MD [Primary Care Provider] - Call for Appointment (Would like you to see your doctor in 1-2 weeks for recheck) Discharge Medications: New cholecalciferol (vitamin D3) [Vitamin D3] 25 mcg (1,000 unit) Tablet 1,000 unit PO DAILY Qty: 30 0RF Discontinued hydrocodone-acetaminophen 5-325 mg tablet 1 tablet PO Q6H PRN (Reason: pain) Patient Comments: may take 1-2 tablets every 6 hrs PRN Other Ambulatory Orders: Magnesium (Routine) Timeframe: 5 Days Location: Determined by Patient Ordered By: Nirav Ashton Renal Function Panel (Routine) Timeframe: 5 Days Location: Determined by Patient Ordered By: Nirav Ashton Date of admission: 07/21/24 14:23 Primary Care Provider: Tae Fontaine Admitting Provider: Zaria Obrien Attending physician on admission: Zaria Obrien Condition: Stable Quality VTE Prophylaxis VTE prophylaxis: pharmacologic ordered Hospitalist MIPS Heart Failure (Exclusion) Patient has history of Heart Transplant or Left Ventricular Assistive Device?: No IF YES, STOP HERE Heart Failure (Qualifier) Patient has current or prior documentation of LVEF less than or equal to 40%, or mod/servere depressed LVSF?: No IF NO, STOP HERE
[2024-07-22 17:52] LABS: Phosphorus 5.7 mg/dL (3.4-5.5)
[2024-07-24 13:43] LABS: Parathyroid Intact 357 pg/mL (16-77)
[2024-07-25 01:58] LABS: Vitamin D 25 Hydroxy 43 ng/mL (30-100)
[2024-07-25 13:08] LABS: Ionized Calcium 3.5 mg/dL (4.7-5.5)
[2024-07-27 10:39] LABS: Vitamin D 1,25 (OH)2 Total 16 pg/mL (18-72); Vitamin D2 1,25 (OH)2 <8 pg/mL; Vitamin D3 1,25 (OH)2 16 pg/mL
== END 2024-07-22 17:00 | disposition home or self-care (01) | DRG 425 ==
LOC: CHSED 23:01 → CHS2ND 07-20 06:59
PROVIDERS: Nurse Practitioner; Nurse Practitioner Acute Care; Admitting Provider Internal Medicine; Emergency Provider Internal Medicine Critical Care Medicine; PCP Family Medicine; Visit Provider Internal Medicine
DX: E83.51 Hypocalcemia (principal); J10.1 Influenza due to other identified influenza virus with other respiratory manifestations; M62.82 Rhabdomyolysis; E87.1 Hypo-osmolality and hyponatremia; E87.6 Hypokalemia
CPT/HCPCS: 36415; 71045; 78070; 80048; 80053; 80076; 82306; 82330; 82550; 82652; 83519; 83605; 83690; 83735; 83970; 84100; 85025; 87637; 93005; 96361; 96365; 96366; 96367; 96372; 96374; 96375; 96376; 99285; A9270; A9500; G0378; J0612; J0613; J1644; J3475; J7030; J7120